=== PATIENT | male | born 1965 | race Caucasian/White ===

== ENCOUNTER → 2016-07-19 | Day surgery (SDC) | payer OTHER ==
[~2016-07-19] MED LIST: AMLO5TAB4 PO; CIPR500T94 PO; IV RINGERS,LACTATED 1000ML 1,000 ML IV SCH; LIDOCAINE 2% PF Vial for OR 5 ML VIAL. ONE; PROPOFOL 40 ML IV ONE
[2016-07-19 17:26] VITALS: BP 102/56
--- NOTE | 2016-07-22 14:21 | PATHOLOGY ---
PATHOLOGY REPORT * * * * * * * * FINAL DIAGNOSIS: A. Duodenal biopsy: - No significant pathologic abnormalities. B. Random colon biopsy: - No significant pathologic abnormalities. COMMENT: Sections of the duodenal biopsy reveal segments of duodenal and small intestine mucosa. Where best oriented, the mucosal villi appear normal. There are no sprue-like changes or significant inflammatory changes. Sections of the random colon biopsy reveal multiple segments of colonic mucosa containing several mucosal-associated lymphoid aggregates. There is no evidence of a chronic destructive colitis, lymphocytic colitis, or collagenous colitis. (JPM:mml; d/t: 07/22/2016) REPORT ELECTRONICALLY SIGNED BY: Jey Gannon M.D. DATE/TIME: 07/22/2016 14:21 * * * * * * * * GROSS PATHOLOGY: A. Received in formalin labeled "Donn Ring, duodenal biopsy," are four segments of sequeira soft tissue measuring 1.0 x 0.6 x 0.1 cm in aggregate dimensions and ranging from 0.3 to 0.6 cm in maximum dimension. The specimen is submitted entirely in cassette A1. B. Received in formalin labeled "Donn Ring, random colon biopsies," are multiple (greater than 10) segments of sequeira soft tissue measuring 1.4 x 1.0 x 0.2 cm in aggregate dimensions and ranging from 0.3 to 1.0 cm in maximum dimension. The specimen is submitted entirely in cassette B1. (CAA; 07/21/2016) INITIAL CPT CODE(S): A; 72117 B; 66144 Professional services performed by [facility] [place] [address] Technical services performed by [facility] at [address] [place] [address] [address] [address]. Mariaa Montez fax: SPECIMEN(S) RECEIVED: A.Duodenal biopsy B.Random colon biopsies CLINICAL HISTORY: Abdominal pain, diarrhea, r/o celiac disease PATIENT: DONN RING /AGE: 708/24/1965 (Age: 50) PATIENT #: [id number] ALT CASE #: SPECIMEN COLLECTION DATE: 07/19/2016 SPECIMEN RECEIVED DATE: 07/20/2016 [facility] - [address] [place] [address] - PHONE: [phone] * * * END OF REPORT * * *
== END | disposition home or self-care (01) ==
LOC: ENDOS 15:49
PROVIDERS: ATTEND Internal Medicine Gastroenterology
DX: K64.0 First degree hemorrhoids (principal); K29.50 Unspecified chronic gastritis without bleeding; K31.89 Other diseases of stomach and duodenum; I10 Essential (primary) hypertension; M19.90 Unspecified osteoarthritis, unspecified site; Z86.73 Personal history of transient ischemic attack (TIA), and cerebral infarction without residual deficits; Z87.39 Personal history of other diseases of the musculoskeletal system and connective tissue; Z87.442 Personal history of urinary calculi; Z86.14 Personal history of Methicillin resistant Staphylococcus aureus infection; Z86.69 Personal history of other diseases of the nervous system and sense organs; Z83.3 Family history of diabetes mellitus; Z82.49 Family history of ischemic heart disease and other diseases of the circulatory system
CPT/HCPCS: 43239; 45380; 88305; J2704